=== PATIENT | male | born 1990 | race Caucasian/White ===

== ENCOUNTER → 2016-08-13 | Outpatient (CLI) | payer OTHER | LOC: KOH-I 13:02 | DX: M25.562 Pain in left knee (principal) | CPT/HCPCS: 73560 ==

== ENCOUNTER 2020-03-08 16:01 | Emergency (ER) | payer OTHER ==
[~2020-03-08 16:01] MED LIST: BUTALB-ACETAMI1 EACH PO; FISH OIL 1,0001 EAC1 PO; FLONASE 0.05% N16 GM; NAPROSYN500 MG PO; PREDNISONE 50 M50 MG PO; PRINIVIL10 MG PO; PROTONIX40 MG PO; SUDAFED 60 MG T60 MG PO; TENORMIN 25 MG25 MG PO; ZYRTEC10 MG PO
== END 2020-03-08 16:45 | disposition home or self-care (01) ==
LOC: ER1 16:01
DX: J06.9 Acute upper respiratory infection, unspecified (principal); R00.2 Palpitations; I10 Essential (primary) hypertension
CPT/HCPCS: 93005; 99283